=== PATIENT | male | born 2000 | race Caucasian/White ===

== ENCOUNTER 2021-07-04 10:04 | Emergency (ER) | payer SELFPAY ==
[~2021-07-04] VITALS: Ht 160 cm; Wt 60.3 kg
[2021-07-04 10:16] VITALS: BP 103/48
--- NOTE | 2021-07-04 10:19 | NUR ---
PT AMBULATED TO BED 9 WITH STEADY GAIT
--- NOTE | 2021-07-04 10:20 | NUR ---
21 Y/O MALE BIB SELF C/O RIGHT EAR PAIN, 11/22 STATED THAT HE FELT SOMETHING WENT INTO HIS EAR TODAY. NOTED DRIED BLOOD BY THE EAR CANAL. NO RESPIRATORY SYMPTOMS NOTED, DENIES ANY MEDICATION FOR PAIN. NKA PMH: DENIES
[2021-07-04] MEDS ORDERED: KETOROLAC 60 MG/2 ML VIAL IM ONE (10:40)
--- NOTE | 2021-07-04 11:12 | NUR ---
PT'S LEFT EAR IRRIGATED WITH WARM WATER, ERMD NOTIFIED.
[2021-07-04] MEDS ORDERED: IBUP-2213 PO (11:22)
[2021-07-04] MEDS ORDERED: ACET-8386 PO (11:22)
[2021-07-04] MEDS ORDERED: COROTSOL RIGHT EAR (11:22)
--- NOTE | 2021-07-04 11:32 | NUR ---
Patient discharged with v/s stable. Written and verbal after care instructions ABOUT FOREIGN BODY IN EAR given and explained. Patient alert, oriented and verbalized understanding of instructions. Ambulatory with steady gait. All questions addressed prior to discharge. ID band removed. Patient advised to follow up with PMD. Rx of NORCO 5-325, CORTISPORIN OTIC SOLUTION, MOTRIN given. Patient educated on indication of medication including possible reaction and side effects. Opportunity to ask questions provided and answered.
== END 2021-07-04 11:32 | disposition home or self-care (01) ==
LOC: MED 10:04
DX: T16.1XXA Foreign body in right ear, initial encounter (principal); X58.XXXA Exposure to other specified factors, initial encounter; Y93.89 Activity, other specified; Y92.89 Other specified places as the place of occurrence of the external cause; Y99.8 Other external cause status
CPT/HCPCS: 96372; 99283; J1885